=== PATIENT | male | born 1970 | race African-American/Black ===

== ENCOUNTER 2023-11-22 16:22 | Emergency (ER) | payer MEDICAID, OTHER ==
[~2023-11-22] VITALS: Ht 185.4 cm; Wt 81.6 kg
[2023-11-22 16:32] VITALS: O2SAT 99
[2023-11-22 18:38] LABS: BASOPHILS % 0.9 % (0.0-2.0); EOSINOPHILS % 1.5 % (0.0-5.0); HEMATOCRIT. 42.8 % (42.0-52.0); HEMOGLOBIN. 14.5 g/dL (14.0-18.0); LYMPHOCYTES % 34.2 % (20.0-50.0); MEAN CORPUSCULAR HEMOGLOBIN 30.1 pg (28.0-32.0); MEAN CORPUSCULAR HGB CONC 33.9 g/dL (31.0-37.0); MEAN CORPUSCULAR VOLUME 88.7 fL (80.0-94.0); MEAN PLATELET VOLUME 8.4 fl (7.4-10.4); NEUTROPHILS % 52.4 % (40.0-76.0); PLATELET 209 x1000/uL (130-400); RED BLOOD CELL COUNT 4.83 mill/uL (4.7-6.1)
[2023-11-22 18:43] LABS: CHLORIDE 109 mEq/L (98-107); POTASSIUM 4.2 mEq/L (3.5-5.1); SODIUM 140 mEq/L (136-145)
[2023-11-22 18:44] LABS: CARBON DIOXIDE 31 mEq/L (21-32)
[2023-11-22 18:45] LABS: CALCIUM 10.2 mg/dL (8.7-10.4)
[2023-11-22 18:49] LABS: GLUCOSE 88 mg/dL (70-105)
[2023-11-22 18:50] LABS: TROPONIN I HIGH SENSITIVITY 4 ng/L (3.0-53); UREA NITROGEN BLOOD 8 mg/dL (9-23)
[2023-11-22 18:51] LABS: ALANINE AMINOTRANSFERASE 14 IU/L (10-49); ALBUMIN 4.7 g/dL (3.2-4.8); ASPARTATE AMINOTRANSFERASE 17 IU/L (<34)
[2023-11-22 18:52] LABS: BILIRUBIN TOTAL 0.4 mg/dL (0.1-1.0); PROTEIN TOTAL 7.3 g/dL (6.0-8.3)
[2023-11-22] MEDS ORDERED: ACET-2708 MT (23:01)
[2023-11-22 23:10] VITALS: BP 123/75; PULSE 60; RESP 18; TEMP 98.4
== END 2023-11-22 23:11 | disposition home or self-care (01) ==
LOC: ER 16:22
DX: R06.02 Shortness of breath (principal); B34.9 Viral infection, unspecified; Z20.822 Contact with and (suspected) exposure to COVID-19
CPT/HCPCS: 36415; 71045; 80053; 83880; 84484; 85025; 87420; 87426; 87804; 93005; 99285